=== PATIENT | female | born 1950 | race Caucasian/White ===

== ENCOUNTER 2016-09-17 17:51 | Emergency (ER) | payer MEDICARE, BC ==
[2016-09-17 18:40] VITALS: BP 150/84
--- NOTE | 2016-09-17 19:21 | EDM.PDOC ---
[id number] THUMB Time Seen by Provider: 09/17/16 19:00 Source: Reports: Patient History Limitations: Reports: No limitations - History of Present Illness INITIAL COMMENTS - FREE TEXT/NARRATIVE: 66-year-old female with small cut on her right thumb she sustained 3 hours ago. Timing: Reports: still present Location, Skin: Reports: upper extremity, left Severity: mild - Related Data Allergies Allergy/AdvReac Type Severity Reaction Status Date / Time No Known Allergies Allergy Verified 09/14/13 19:08 Home Meds: Ambulatory Orders Medication Instructions Recorded Confirmed Lisinopril 20 mg PO DAILY 09/14/13 09/14/13 Past Medical History - Past Surgical History GI Surgical History: Reports: Appendectomy Female Surgical History: Reports: section Social & Family History - Tobacco Use Smoking Status *Q: Never Smoker Years of Tobacco use: 25 - Alcohol Use Days Per Week of Alcohol Use: 0 - Recreational Drug Use Recreational Drug Use: No ED ROS GENERAL - Review of Systems Review Of Systems: ROS reveals no pertinent complaints other than HPI. ED EXAM, SKIN/RASH Exam: See Below Exam Limited By: No limitations General Appearance: alert, no apparent distress Respiratory/Chest: no respiratory distress Extremities: other (Exam is otherwise limited to the left hand. Patient has a 1 cm longitudinal laceration on the dorsal aspect of the left thumb over the IP joint. The wound is closed and not bleeding.) Course - Vital Signs Last Recorded V/S: Last Vital Signs Temp 98.6 F 09/17/16 18:44 Pulse 73 09/17/16 18:44 Resp 15 09/17/16 18:44 BP 150/84 H 09/17/16 18:44 Pulse Ox 93 L 09/17/16 18:44 - Re-Assessments/Exams Free Text/Narrative Re-Assessment/Exam: 09/17/16 20:13 No repair is necessary. A bandage was placed on the wound and she was given some extra bandages, should keep it covered and clean while healing Departure - Departure Time of Disposition: 19:26 Disposition: Home, Self-Care 01 Condition: good Clinical Impression: Thumb laceration Qualifiers: Encounter type: initial encounter Laterality: left Qualified Code(s): S61.012A - Laceration without foreign body of left thumb without damage to nail, initial encounter Instructions: Laceration Care, Adult, [id number] Referrals: Malena Asher NP [Primary Care Provider] - Forms: ED Department Discharge Care Plan Goals: Keep wound covered and clean while healing. Recheck if concerns of infection or not healing satisfactorily.
== END 2016-09-17 19:27 | disposition home or self-care (01) ==
LOC: JP.ED 17:51
DX: S61.012A Laceration without foreign body of left thumb without damage to nail, initial encounter (principal); Z79.899 Other long term (current) drug therapy; Z90.49 Acquired absence of other specified parts of digestive tract; Z98.890 Other specified postprocedural states; X58.XXXA Exposure to other specified factors, initial encounter
CPT/HCPCS: 99282; 99283